=== PATIENT | male | born 1965 | race Caucasian/White ===

== ENCOUNTER 2021-08-08 04:28 | Emergency (ER) | payer SELFPAY ==
[~2021-08-08] VITALS: Ht 68 cm; Wt 77.1 kg
[~2021-08-08 04:28] MED LIST: AZIT250T12 PO; HYDR-4226 PO
--- NOTE | 2021-08-08 05:26 | ED Lower Extremity ---
General Chief Complaint: Lower Extremity Stated Complaint: L FOOT RED/SWELLING/BURNING Nursing Triage Note: Pt arrives via POV from home with c/o pain/burning to the toes on his left foot. pt reports working outside on concrete yesterday, states his shoes/socks were wet, states this AM he woke up for work et was unable to put on his shoes due to the pain. Source: patient Exam Limitations: no limitations History of Present Illness Date Seen by Provider: Aug 08, 2021 Time Seen by Provider: 05:04 Initial Comments Here with report of burning and pain to all of his toes on his left foot. 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 When he got home he took off his socks and noted that his toes were white and wrinkled. This morning he noted that they were red and tender. No specific injury other than the cold injury from yesterday. Right foot had similar but less concerning so he did not present for that foot. Onset: yesterday Severity: moderate Pain/Injury Location: left foot, left 1st toe, left 2nd toe, left 3rd toe, left 4th toe, left 5th toe Method of Injury: other (Cold injury) Modifying Factors: Improves With Immobilization, Improves With Rest Allergies and Home Medications Allergies Coded Allergies: No Known Drug Allergies (Unverified , 11/12/15) Patient Home Medication List Home Medication List Reviewed: Yes Hydrocodone/Acetaminophen (Hydrocodone/Acetaminophen 5 MG/325 MG TAB) 1 Each Tablet, 1 EACH PO Q4H PRN for PAIN Prescribed by: OTONIEL MCKEON on 12/03/15 2574 Review of Systems Constitutional: see HPI; No chills, No fever Respiratory: no symptoms reported Cardiovascular: no symptoms reported Musculoskeletal: joint pain, muscle pain Skin: see HPI, change in color; No lesions Past Npnehgh-[id number]-[id number] Hx Patient Social History Tobacco Use?: Yes Tobacco type used: Cigarettes Smoking Status: Current Everyday Smoker Use of E-Cig and/or Vaping dev: No Substance use?: No Alcohol Use?: No Pt feels they are or have been: No Immunizations Up To Date Influenza Vaccine Up-to-Date: No; Not Current Past Medical History Reproductive Disorders: No Sexually Transmitted Disease: No Family Medical History Reviewed Nursing Family Hx Physical Exam Vital Signs Vital Signs - First Documented 08/08/21 04:45 Temp 36.7 Pulse 107 Resp 18 B/P (MAP) 146/94 (111) Pulse Ox 95 O2 Delivery Room Air Capillary Refill : Less Than 3 Seconds Height, Weight, BMI Height: 5'9" Weight: 160lbs. oz. 72.387550dp; 166.00 BMI Method:Stated General Appearance: WD/WN, no apparent distress Cardiovascular: regular rate, rhythm, no murmur Respiratory: lungs clear, normal breath sounds Feet: left foot pain, left foot soft tissue tenderness, left foot other (All 5 toes are reddened and a little swollen. Does appear to have superficial abrasion to the top of the second and fourth toes. Findings consistent with cold injury) Neurologic/Tendon: normal sensation, normal motor functions, normal tendon functions Neurologic/Psychiatric: alert, oriented x 3 Skin: warm/dry, other (Erythematous as described above to the toes on the left foot) Progress/Results/Core Measures Results/Orders Vital Signs/I&O 08/08/21 04:45 Temp 36.7 Pulse 107 Resp 18 B/P (MAP) 146/94 (111) Pulse Ox 95 O2 Delivery Room Air Blood Pressure Mean: 111 Progress Progress Note : Progress Note Seen and evaluated. I did discuss cold injury. I did spend about 10 minutes discussing smoking cessation with him as well. He will take pain medicine at home. Work note given. Discharged home with return precautions. Patient verbalized understanding instructions and agreement with plan. Departure Impression Primary Impression: Cold injury Qualified Codes: T69.9XXA - Effect of reduced temperature, unspecified, initial encounter Disposition: 01 HOME, SELF-CARE Condition: Improved Departure-Patient Inst. Decision time for Depature: 05:24 Referrals: FREDDIE CROOKS MD NO,LOCAL PHYSICIAN (PCP) Primary Care Physician Patient Instructions: Hypothermia Add. Discharge Instructions: All discharge instructions reviewed with patient and/or family. Voiced understanding. You have a cold injury to your foot from being in the cold, wet weather and having wet feet. The swelling and pain should subside over the next few days. You may take Aleve 1 or 2 tablets twice daily as needed for the next several days. You may also take Tylenol/acetaminophen 1000 mg every 6-8 hours as needed for pain. Keep your feet warm and dry and elevate to reduce swelling. Off work until Wednesday. You should wear warm clothing and protective boots to prevent feet from getting wet in the cold. You should stop smoking. Follow-up with your doctor or as discussed [facility] for recheck and further evaluation and for smoking cessation. Return for worse pain, swelling, fever or other concerns as needed. Work/School Note: Work Release Form Date Seen in the Emergency Department: Aug 08, 2021 Return to Work: Aug 11, 2021 Restrictions: No Restrictions RINA OZUNA MD Aug 08, 2021 05:26
[2021-08-08 05:39] VITALS: BP 146/94
== END 2021-08-08 05:40 | disposition home or self-care (01) ==
LOC: EDUNIT# 04:28 → ER 04:33
DX: T69.9XXA Effect of reduced temperature, unspecified, initial encounter (principal); F17.210 Nicotine dependence, cigarettes, uncomplicated
CPT/HCPCS: 99281